=== PATIENT | female | born 1985 | race Caucasian/White ===

== ENCOUNTER 2017-03-18 18:48 | Emergency (ER) | payer SELFPAY ==
[~2017-03-18] VITALS: Ht 154.9 cm; Wt 63.5 kg
[~2017-03-18 18:48] MED LIST: ALPR1TAB2 PO; CITA20TA9 PO; DIPH25TA64 PO; ERYT1OIN6 EACHEYE; FAMO-63 PO; PRED50TA PO; [UNRECOGNIZED DRUG - CODE] IY
[2017-03-18] MEDS ORDERED: LIDOCAINE 1% / SOD BICARB 8.4% 20 ML VIAL. IJ ONE (19:30)
[2017-03-18] MEDS ORDERED: DIPHTH,PERTUSS(ACELL),TET TOX 0.5 ML DISP.SYRIN. VAX IM ONE (19:45)
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
[2017-03-18] MEDS ORDERED: ACETAMINOPHEN 325 MG TABLET. PO ONE (23:00)
[2017-03-18 23:05] VITALS: BP 112/70
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
== END 2017-03-18 23:35 | disposition home or self-care (01) ==
LOC: ER 18:48 → EEVIPCON 18:51 → ER 23:35
DX: S01.81XA Laceration without foreign body of other part of head, initial encounter (principal); S01.112A Laceration without foreign body of left eyelid and periocular area, initial encounter; S01.21XA Laceration without foreign body of nose, initial encounter; F32.9 Major depressive disorder, single episode, unspecified; F41.0 Panic disorder [episodic paroxysmal anxiety]; F17.200 Nicotine dependence, unspecified, uncomplicated
CPT/HCPCS: 12014; 70450; 70486; 71111; 90471; 90715; 99284-25

== ENCOUNTER 2017-03-22 04:25 | Emergency (ER) | payer SELFPAY ==
[~2017-03-22] VITALS: Ht 160 cm; Wt 63.5 kg
[2017-03-22 04:25] VITALS: BP 172/68
[2017-03-22] MEDS ORDERED: IBUPROFEN 600 MG TABLET. PO ONE (05:30)
[2017-03-22] MEDS ORDERED: IBUP-1007 PO (05:34)
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
--- NOTE | 2017-03-22 07:15 | RAD ---
Exam performed: 2 views of the chest. Indication: back pain ribs right sided Date of Service:03/22/2017 6:59 AM . Comparison : 03/18/17 Findings: PA and lateral radiographs of the chest reveal a normal cardiomediastinal contour. There is a healing left posterior lateral fracture. Lungs are otherwise clear. No pleural fluid is seen. The visualized osseous structures are unremarkable. Impression: No acute cardiopulmonary process seen. Healing left ninth rib fracture
== END 2017-03-22 05:47 | disposition home or self-care (01) ==
LOC: ER 04:25
DX: R07.81 Pleurodynia (principal); R06.7 Sneezing; M54.9 Dorsalgia, unspecified; F32.9 Major depressive disorder, single episode, unspecified; F41.0 Panic disorder [episodic paroxysmal anxiety]; F12.10 Cannabis abuse, uncomplicated
CPT/HCPCS: 71020; 99284-25

== ENCOUNTER 2017-05-10 06:23 | Emergency (ER) | payer SELFPAY ==
[~2017-05-10] VITALS: Ht 165.1 cm; Wt 63.5 kg
[~2017-05-10 06:23] MED LIST changes: +IBUP-1007 PO
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
[2017-05-10 06:36] VITALS: BP 111/59
[2017-05-10] MEDS ORDERED: FLUORESCEIN OPHTH TEST STRIP. OS ONE (07:00)
[2017-05-10] MEDS ORDERED: TETRACAINE 0.5% OPHTH SOLUTION 4ML BOTTLE. OS ONE (07:00)
[2017-05-10] MEDS ORDERED: AMOX1TAB61 PO (07:13)
[2017-05-10] MEDS ORDERED: HYDR-971 PO (07:19)
== END 2017-05-10 07:42 | disposition home or self-care (01) ==
LOC: ER 06:23
DX: J32.9 Chronic sinusitis, unspecified (principal); H18.892 Other specified disorders of cornea, left eye; F32.9 Major depressive disorder, single episode, unspecified; F41.9 Anxiety disorder, unspecified; F12.10 Cannabis abuse, uncomplicated
CPT/HCPCS: 99283

== ENCOUNTER 2017-07-17 19:20 | Emergency (ER) | payer SELFPAY ==
[~2017-07-17] VITALS: Ht 154.9 cm; Wt 59.0 kg
[~2017-07-17 19:20] MED LIST changes: +AMOX1TAB61 PO; +HYDR-971 PO
[2017-07-17 19:59] VITALS: BP 103/57
[2017-07-17] MEDS ORDERED: AMOXICILLIN/K CLAV 875/125MG TABLET. PO ONE (20:45)
[2017-07-17] MEDS ORDERED: HYDROcodone/APAP 5/325MG 1 TAB TABLET PO ONE (20:45)
[2017-07-17] MEDS ORDERED: TRAM-48 PO (21:03)
[2017-07-17] MEDS ORDERED: AMOX500T PO (21:03)
[2017-07-17] MEDS ORDERED: ERYT1OIN6 OP (21:03)
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
== END 2017-07-17 21:07 | disposition home or self-care (01) ==
LOC: ER 19:20
DX: K04.7 Periapical abscess without sinus (principal); K02.9 Dental caries, unspecified; H18.70 Unspecified corneal deformity; F32.9 Major depressive disorder, single episode, unspecified; F41.0 Panic disorder [episodic paroxysmal anxiety]; F17.210 Nicotine dependence, cigarettes, uncomplicated
CPT/HCPCS: 99283

== ENCOUNTER 2017-12-15 15:24 | Emergency (ER) | payer OTHER, SELFPAY ==
[2017-12-15 16:57] LABS: URINE HCG POC HCG NEGATIVE (Negative)
== END 2017-12-15 19:06 | disposition home or self-care (01) ==
LOC: ER 15:24
DX: S60.222A Contusion of left hand, initial encounter (principal); S40.012A Contusion of left shoulder, initial encounter; S40.011A Contusion of right shoulder, initial encounter; S70.02XA Contusion of left hip, initial encounter; S70.01XA Contusion of right hip, initial encounter; S30.0XXA Contusion of lower back and pelvis, initial encounter; S20.222A Contusion of left back wall of thorax, initial encounter; S20.221A Contusion of right back wall of thorax, initial encounter; S80.02XA Contusion of left knee, initial encounter; S80.01XA Contusion of right knee, initial encounter; S50.12XA Contusion of left forearm, initial encounter; S50.11XA Contusion of right forearm, initial encounter; S40.022A Contusion of left upper arm, initial encounter; S40.021A Contusion of right upper arm, initial encounter; F41.0 Panic disorder [episodic paroxysmal anxiety]; F32.9 Major depressive disorder, single episode, unspecified; F43.10 Post-traumatic stress disorder, unspecified; F17.200 Nicotine dependence, unspecified, uncomplicated; F12.10 Cannabis abuse, uncomplicated; Y08.89XA Assault by other specified means, initial encounter; Y93.89 Activity, other specified; Y92.89 Other specified places as the place of occurrence of the external cause; Y99.8 Other external cause status
CPT/HCPCS: 70450; 70486; 71110; 72125; 72128; 72131; 73130; 81025; 99284-25

== ENCOUNTER 2018-04-18 09:33 | Emergency (ER) | payer OTHER ==
[2018-04-18] MEDS: traMADol 50 MG TABLET PO (10:23)
[2018-04-18] MEDS: DIPHTH,PERTUSS(ACELL),TET TOX 0.5 ML DISP.SYRIN. VAX IM (10:31)
== END 2018-04-18 10:32 | disposition home or self-care (01) ==
LOC: ER 10:32
DX: S40.012A Contusion of left shoulder, initial encounter (principal); S50.12XA Contusion of left forearm, initial encounter; S20.212A Contusion of left front wall of thorax, initial encounter; S00.83XA Contusion of other part of head, initial encounter; S00.03XA Contusion of scalp, initial encounter; F31.9 Bipolar disorder, unspecified; F43.10 Post-traumatic stress disorder, unspecified; F41.0 Panic disorder [episodic paroxysmal anxiety]; Y04.1XXA Assault by human bite, initial encounter; Y93.89 Activity, other specified; Y99.8 Other external cause status; Y92.89 Other specified places as the place of occurrence of the external cause
CPT/HCPCS: 99282; 99283